=== PATIENT | male | born 1945 | race Caucasian/White ===

== ENCOUNTER 2021-04-04 10:44 | Observation (INO) | payer OTHER ==
[~2021-04-04] VITALS: Ht 177.8 cm; Wt 98.0 kg
[~2021-04-04 10:44] MED LIST: CEFUROXIME500 MG PO
[2021-04-04 11:31] LABS: HEMOGLOBIN 9.7 gm/dl (14.0-17.5); RED BLOOD COUNT 3.67 M/UL (4.20-5.50); WHITE BLOOD COUNT 5.3 K/UL (4.5-11.0)
[2021-04-04 11:48] LABS: BUN/CREATININE RATIO 21 (0-10)
[2021-04-04] MEDS ORDERED: LASIX40 MG PO (15:14)
[2021-04-04] MEDS ORDERED: SINGULAIR10 MG PO (15:14)
[2021-04-04] MEDS ORDERED: ISOSORBIDE MONO30 MG PO (15:15)
[2021-04-04] MEDS ORDERED: GABAPENTIN600 MG PO (15:15)
[2021-04-04] MEDS ORDERED: UROXATRAL10 MG PO (15:16)
[2021-04-04] MEDS ORDERED: HYDRALAZINE HCL50 MG PO (15:16)
[2021-04-04] MEDS ORDERED: ELIQUIS 5 MG TAB5 MG PO (15:17)
[2021-04-04] MEDS ORDERED: MAGNESIUM OXID420 MG PO (15:17)
[2021-04-04] MEDS ORDERED: VITAMIN D325 MCG PO (15:18)
[2021-04-04] MEDS ORDERED: VITAMIN C250 MG PO (15:18)
[2021-04-04] MEDS ORDERED: SOTALOL120 MG PO (15:19)
[2021-04-04] MEDS ORDERED: SIMVASTATIN80 MG PO (15:19)
[2021-04-04] MEDS ORDERED: LEVOTHYROXINE125 MC1 PO (15:20)
[2021-04-04] MEDS ORDERED: ASPIRIN 325MG325 MG PO (15:21)
[2021-04-04] MEDS ORDERED: ZESTRIL 40 MG T40 MG PO (15:21)
[2021-04-04] MEDS ORDERED: FERROUS SULFAT324 MG PO (15:21)
[2021-04-04] MEDS ORDERED: OMEPRAZOLE20 M1 PO (15:22)
[2021-04-04] MEDS ORDERED: METFORMIN HCL1000 MG PO (15:23)
[2021-04-04] MEDS ORDERED: INSULIN AS100 UNIT/2 SQ (15:24)
[2021-04-04] MEDS ORDERED: LANTUS INS100 UTS/ML SQ (15:26)
[2021-04-05 03:52] LABS: HEMOGLOBIN 9.2 gm/dl (14.0-17.5); RED BLOOD COUNT 3.51 M/UL (4.20-5.50); WHITE BLOOD COUNT 6.4 K/UL (4.5-11.0)
[2021-04-05 04:17] LABS: BUN/CREATININE RATIO 19 (0-10)
[2021-04-06 03:05] LABS: HEMOGLOBIN 9.1 gm/dl (14.0-17.5); RED BLOOD COUNT 3.46 M/UL (4.20-5.50); WHITE BLOOD COUNT 5.7 K/UL (4.5-11.0)
[2021-04-06] MEDS ORDERED: LASIX40 MG PO (14:12)
== END 2021-04-06 15:46 | disposition home or self-care (01) ==
LOC: ER1 10:44 → CDU 14:39 → MED SURG 4 14:39
PROVIDERS: Physician Assistant; Physician Assistant Medical; ADMIT Internal Medicine
DX: I11.0 Hypertensive heart disease with heart failure (principal); I50.31 Acute diastolic (congestive) heart failure; D50.9 Iron deficiency anemia, unspecified; E11.65 Type 2 diabetes mellitus with hyperglycemia; R07.89 Other chest pain; I25.10 Atherosclerotic heart disease of native coronary artery without angina pectoris; I48.0 Paroxysmal atrial fibrillation; E78.5 Hyperlipidemia, unspecified; E89.0 Postprocedural hypothyroidism; E83.42 Hypomagnesemia; G47.33 Obstructive sleep apnea (adult) (pediatric); K21.9 Gastro-esophageal reflux disease without esophagitis; Z20.822 Contact with and (suspected) exposure to COVID-19; Z85.850 Personal history of malignant neoplasm of thyroid; Z79.01 Long term (current) use of anticoagulants; Z79.4 Long term (current) use of insulin; Z79.899 Other long term (current) drug therapy; Z95.5 Presence of coronary angioplasty implant and graft; Z87.891 Personal history of nicotine dependence; Z98.890 Other specified postprocedural states; Z79.82 Long term (current) use of aspirin
CPT/HCPCS: ECHO; 36415; 71045; 78452; 80048; 80053; 80061; 82550; 82553; 82728; 82962; 83036; 83540; 83550; 83735; 83874; 83880; 84484; 85025; 85379; 93005; 93017; 93306; 96374; 96375; 96376; 97161; 97166; 99285; A9502; C9113; G0378; J1756; J1940; J2785; J3475; Q9967; U0002

== ENCOUNTER → 2021-07-19 | Day surgery (SDC) | payer OTHER ==
[~2021-07-19] MED LIST changes: +ASPIRIN 325MG325 MG PO; +ELIQUIS 5 MG TAB5 MG PO; +FERROUS SULFAT324 MG PO; +GABAPENTIN600 MG PO; +HYDRALAZINE HCL50 MG PO; +INSULIN AS100 UNIT/2 SQ; +ISOSORBIDE MONO30 MG PO; +LANTUS INS100 UTS/ML SQ; +LASIX40 MG PO; +LEVOTHYROXINE125 MC1 PO; +MAGNESIUM OXID420 MG PO; +METFORMIN HCL1000 MG PO; +OMEPRAZOLE20 M1 PO; +SIMVASTATIN80 MG PO; +SINGULAIR10 MG PO; +SOTALOL120 MG PO; +UROXATRAL10 MG PO; +VITAMIN C250 MG PO; +VITAMIN D325 MCG PO; +ZESTRIL 40 MG T40 MG PO
== END | disposition home or self-care (01) ==
LOC: OR 09:00
DX: Z12.11 Encounter for screening for malignant neoplasm of colon (principal); K57.90 Diverticulosis of intestine, part unspecified, without perforation or abscess without bleeding; R15.9 Full incontinence of feces; I11.0 Hypertensive heart disease with heart failure; I50.9 Heart failure, unspecified; I48.91 Unspecified atrial fibrillation; G47.33 Obstructive sleep apnea (adult) (pediatric); E11.9 Type 2 diabetes mellitus without complications; E78.00 Pure hypercholesterolemia, unspecified; E03.9 Hypothyroidism, unspecified; Z99.89 Dependence on other enabling machines and devices; Z87.891 Personal history of nicotine dependence; Z79.4 Long term (current) use of insulin; Z79.899 Other long term (current) drug therapy; Z79.01 Long term (current) use of anticoagulants; Z20.822 Contact with and (suspected) exposure to COVID-19
CPT/HCPCS: 82962; J2704; J7030; U0002